=== PATIENT | male | born 1960 | race Caucasian/White ===

== ENCOUNTER 2019-10-01 18:20 | Emergency (ER) | payer OTHER, SELFPAY ==
--- NOTE | ~2019-10-01 | XR_ITS ---
EXAMINATION: XR chest 1V portable DATE: 10/01/2019 19:17 INDICATION: Upper intermittent chest pain. TECHNIQUE: A single frontal view of the chest was obtained. COMPARISON: Chest single view 03/10/2018, chest CT 04/06/2018 FINDINGS: The chest demonstrates clear lungs without pneumonia, pleural effusion, or pneumothorax. Th e heart size is normal. IMPRESSION: 1. No acute cardiopulmonary disease. Reviewed, dictated and finalized at location A.
[2019-10-01 18:35] VITALS: BP 155/97; PULSE 72; RESP 18; TEMP 36.6; O2SAT 99
[2019-10-01 18:42] VITALS: PULSE 70
--- NOTE | 2019-10-01 19:04 | ECG_ITS ---
Measurements Intervals [place] Rate: 68 P: 66 CO: 149 QRS: -11 QRSD: 103 T: 49 QT: 405 QTc: 431 Interpretive Statements SINUS RHYTHM POSSIBLE LEFT ATRIAL ENLARGEMENT DELAYED PRECORDIAL R/S TRANSITION BORDERLINE ST-T WAVE ABNORMALITY- LATERAL LEADS BASELINE WANDER- I, II, III BORDERLINE ECG Electronically Signed On 10-02-2019 7:20:06 CDT by Jerson Navarro D.O.
[2019-10-01 19:16] LABS: Basophils Absolute Auto 0.03 K/mm3 (0.00-0.10); Basophils Percent Auto 0.5 % (0.0-1.0); Eosinophils Absolute Auto 0.06 K/mm3 (0.02-0.50); Hematocrit 42.5 % (40.0-54.0); Hemoglobin 15.2 g/dL (14.0-18.0); Immature Granulocyte Absolute 0.01 K/mm3 (0.00-0.00); Immature Granulocyte Percent A 0.2 % (0.0-0.0); Lymphocytes Absolute Auto 1.91 K/mm3 (1.10-4.50); Lymphocytes Percent Auto 33.1 % (18.0-42.0); Mean Corpuscular HGB Conc 35.8 g/dL (32.0-36.0); Mean Corpuscular Hemoglobin 31.9 pg (27.0-31.0); Mean Corpuscular Volume 89.3 fL (78.0-102.0); Monocytes Absolute Auto 0.54 K/mm3 (0.10-0.90); Monocytes Percent Auto 9.4 % (2.0-11.0); Neutrophils Absolute Auto 3.2 K/mm3 (1.7-7.2); Neutrophils Percent Auto 55.8 % (50.0-70.0); Platelet Count Result 181 K/mm3 (150-420); Red Blood Count 4.76 M/mm3 (4.70-6.10); Red Cell Distribution Width 12.6 % (11.6-14.4); White Blood Count 5.8 K/mm3 (4.8-10.8)
[2019-10-01 19:20] VITALS: BP 127/80; PULSE 57; RESP 14; O2SAT 96
[2019-10-01 19:30] LABS: D Dimer 0.23 mg/L (0.19-0.50)
[2019-10-01 19:35] LABS: Alanine Aminotransferase 56 U/L (16-63); Albumin Level 4.1 g/dL (3.4-5.0); Alkaline Phosphatase 72 U/L (46-116); Anion Gap 14.8 mmol/L (7-16); Aspartate Amino Transferase 31 U/L (15-37); Bilirubin,Total 1.2 mg/dL (0.00-1.00); Blood Urea Nitrogen 14 mg/dL (7-18); Calcium 8.9 mg/dL (8.5-10.1); Carbon Dioxide 26 mmol/L (21-32); Chloride 104 mmol/L (98-108); Estimated CRCL calculation 75 ml/min; Estimated Glomerular Filt Rate > 60; Glucose 87 mg/dL (70-99); Osmolality Calculated 291 mOsm/kg (285-295); Potassium 3.8 mmol/L (3.5-5.1); Sodium 141 mmol/L (136-145); Total Protein 6.7 g/dL (6.4-8.2)
[2019-10-01 19:36] LABS: Troponin I < 0.02 ng/mL (0.00-0.056)
[2019-10-01 19:37] LABS: Magnesium 1.7 mg/dL (1.8-2.4)
--- NOTE | 2019-10-01 19:48 | ED.CHESTPAIN ---
HPI - Chest Pain General Chief Complaint: Chest Pain Stated Complaint: chest pain Source: patient Mode of arrival: ambulatory Limitations: no limitations History of Present Illness HPI narrative: 59 y.o. male PMH of Htn, hyperlipidemiacardiac, NH/stent placement 6 years ago presents with a 1.5 day hx of intermittent, mild chest discomfort, lasting 10 -45 minutes. Last episode onset at 5:15 this evening. Pain associated with vague lightheadedness. The back of his neck has also been sore over the past few days. sometimes when he is having chest pain. No sx of SOB, nausea, sweating. Pt states nothing brings it on or appears to relieve it. It seems to be associated with burping. Pt. followed by Dr. Jones; last seen 6 months ago. Denies burning in chest or acidic taste in his mouth. 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 Hx of g.i. bleed; does not take aspirin, takes Plavix. Pain lasting longer today. NH pain was mild, lasted several days, associated with D.O.E. and discomfort across his lower chest. Biked 18 miles this AM, broke out in a sweat, had no chest symptoms. 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 Feels under a lot of stress. Pertinent past history: known aortic aneurysm Risk Factors Thoracic aortic dissection risk factors: history of thoracic aortic aneurysm Pulmonary embolism risk factors: clotting disorder, history of deep vein thrombosis, immobilization and history of pulmonary embolism Related Data Home Medications Medication Instructions Recorded Confirmed atorvastatin 40 mg PO HS 10/01/19 10/01/19 clopidogrel 75 mg PO DAILY 10/01/19 10/01/19 ferrous sulfate 325 mg PO BID 10/01/19 10/01/19 lisinopril 2.5 mg PO DAILY 10/01/19 10/01/19 metoprolol tartrate 25 mg PO BID 10/01/19 10/01/19 pantoprazole 40 mg PO DAILY 10/01/19 10/01/19 Allergies Allergy/AdvReac Type Severity Reaction Status Date / Time No Known Allergies Allergy Unverified 10/05/12 13:36 Review of Systems Constitutional: Constitutional: Reports no additional constitutional complaints, Denies chills and Denies fever(s) ENT: Comments: Has had a minor sore throat and occasional sniffles for one - two days. Cardiovascular: Cardiovascular: Reports no additional cardiovascular complaints, Denies rapid heart rate and Denies slow heart rate Respiratory: Respiratory: Denies cough Gastrointestinal: Gastrointestinal: Denies abdominal pain, Denies diarrhea, Denies nausea and Denies vomiting Genitourinary: Genitourinary: Denies dysuria Musculoskeletal: Musculoskeletal: Reports no additional musculoskeletal complaints Integumentary/Breasts: Skin/Breast: Denies rash Neurologic: Reports system reviewed and no additional complaints, except as documented, Denies vertigo, Denies syncope and Denies headache(s) Psychiatric: Psychiatric: Denies depression Endocrine: Endocrine: Denies polyuria Hematologic/Lymphatic: Hematologic/Lymphatic: Denies easy bleeding PMFSH Past Medical History Medical History Hyperlipidemia Hypertension Surgical History Surgical History (Updated 10/01/19 @ 20:09 by Wesley Quezada MD) Stented coronary artery Family History Family History (Updated 10/01/19 @ 20:19 by Wesley Quezada MD) Mother Hx of CABG Father No problems noted. Exam Const: General: cooperative, healthy appearing and no acute distress Nutritional Appearance: average body habitus, well nourished and other (appears very fit) Orientation/consciousness: patient oriented x3 HENMT: Head: normal to inspection and atraumatic Face and sinus: sinuses nontender Teeth and gingiva: dentition normal Throat: posterior oropharynx normal Eyes: General: appearance normal, both eyes and all related structures Neck: Neck: normal visual inspection and no lymphadenopathy Chest: Chest palpation & inspect
--- NOTE | 2019-10-01 19:56 | PC.NURSE ---
Pt up to bathroom. 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 peres. Pt denies any complaints at this time.
[2019-10-01 20:49] VITALS: BP 128/82; PULSE 54; RESP 16; O2SAT 97
== END 2019-10-01 20:51 | disposition home or self-care (01) ==
PROVIDERS: Emergency Provider Family Medicine; PCP Internal Medicine
DX: R07.9 Chest pain, unspecified (principal)
CPT/HCPCS: 36415; 71045; 80053; 83735; 84484; 85025; 85380; 93005; 99284

== ENCOUNTER 2020-05-29 13:34 | Outpatient (CLI) | payer OTHER, SELFPAY ==
--- NOTE | ~2020-05-29 | CT_ITS ---
EXAMINATION: CT abdomen pelvis w con EXAM DATE: 05/29/2020 14:56 INDICATION: Acute abdominal pain; nausea. TECHNIQUE: Spiral CT of the abdomen and pelvis was performed following intravenous injection of 100 m L Omnipaque 350. Axial, coronal and sagittal images were reviewed. The dose-length product (DLP) fo r this examination was 621.94 mGy-cm. The exposure was tailored according to patient size (auto mA e xposure control), and iterative reconstruction (ASIR) was used as additional dose reduction technique . There is no prior study for comparison. 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 Adjacent to this there is a loop of small bowel with moderate wa ll edema, fecal stasis, and partial obstruction suspected, only with a couple of mildly dilated small bowel loops proximal to this. Colonic fluid, correlate for diarrhea. The liver, spleen, adrenal glands and pancreas are unremarkable. Gallbladder is unremarkable. No bi liary obstruction. Portal and splenic veins are patent. Kidneys enhance symmetrically. There is no hydronephrosis. The prostate is unremarkable. The bladder is unremarkable. There is no retroperi toneal or pelvic lymphadenopathy. There is mild scattered arteriosclerotic disease. The appendix is normal. Small umbilical fat-containing hernia. No free intraperitoneal gas. The hea rt is normal in size. There are no pericardial or pleural effusions. The lung bases are unremarkabl e. There are no osteoblastic or osteolytic lesions identified. IMPRESSION: 1. 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 2. Small umbilical fat-containing hernia. Reviewed, dictated and finalized at location A. LE SOLUTIONS ARCHITECT IMPRESSION: 1. 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 2. Small umbilical fat-containing hernia.
[2020-05-29 13:52] LABS: Basophils Absolute Auto 0.02 K/mm3 (0.00-0.10); Basophils Percent Auto 0.2 % (0.0-1.0); Eosinophils Absolute Auto 0.02 K/mm3 (0.02-0.50); Eosinophils Percent Auto 0.2 % (1.0-6.0); Hematocrit 47.7 % (40.0-54.0); Hemoglobin 16.6 g/dL (14.0-18.0); Immature Granulocyte Absolute 0.03 K/mm3 (0.00-0.00); Immature Granulocyte Percent A 0.3 % (0.0-0.0); Lymphocytes Absolute Auto 1.16 K/mm3 (1.10-4.50); Lymphocytes Percent Auto 11.2 % (18.0-42.0); Mean Corpuscular HGB Conc 34.8 g/dL (32.0-36.0); Mean Corpuscular Hemoglobin 31.3 pg (27.0-31.0); Mean Corpuscular Volume 89.8 fL (78.0-102.0); Monocytes Absolute Auto 0.75 K/mm3 (0.10-0.90); Monocytes Percent Auto 7.2 % (2.0-11.0); Neutrophils Absolute Auto 8.4 K/mm3 (1.7-7.2); Neutrophils Percent Auto 80.9 % (50.0-70.0); Platelet Count Result 206 K/mm3 (150-420); Red Blood Count 5.31 M/mm3 (4.70-6.10); Red Cell Distribution Width 12.4 % (11.6-14.4); White Blood Count 10.4 K/mm3 (4.8-10.8)
[2020-05-29 14:01] LABS: Appearance Urine Clear (Clear); Bilirubin Urine Negative (Negative); Color Urine Yellow (Yellow); Glucose Urine UA Negative (Negative); Ketones Urine Negative (Negative); Leukocyte Esterase Ur Negative (Negative); Nitrate Urine Negative (Negative); Protein Urine Negative (Negative); Specific Grav Ur >= 1.030 (1.010-1.020); Urobilinogen Urine 0.2 mg/dL (0.2-1.0)
[2020-05-29 14:03] LABS: Add Urine Microscopic? YES; Bacteria Urine Trace /hpf; Blood Urine Trace-Intact (Negative); Mucus Urine Moderate /lpf; RBC Urine 0-2 /hpf (0-2); WBC Urine 0-3 /hpf (0-3)
[2020-05-29 14:06] LABS: Alanine Aminotransferase 47 U/L (16-63); Alkaline Phosphatase 88 U/L (46-116); Amylase 47 U/L (25-115); Anion Gap 6 mmol/L (8-16); Aspartate Amino Transferase 21 U/L (15-37); Bilirubin,Total 1.5 mg/dL (0.00-1.00); Blood Urea Nitrogen 14 mg/dL (7-18); Carbon Dioxide 30 mmol/L (21-32); Chloride 102 mmol/L (98-108); Estimated Glomerular Filt Rate > 60; Glucose 124 mg/dL (70-99); Lipase 138 U/L (73-393); Osmolality Calculated 287 mOsm/kg (285-295); Potassium 4.3 mmol/L (3.5-5.1); Sodium 138 mmol/L (136-145)
[2020-05-29 14:51] LABS: Erythrocyte Sedimentation Rate 9 mm/hr (0-20)
== END 2020-05-29 13:35 | disposition home or self-care (01) ==
LOC: CHSLAB 13:38
PROVIDERS: PCP Internal Medicine; Visit Provider Internal Medicine
DX: R10.9 Unspecified abdominal pain (principal); K92.1 Melena; R11.0 Nausea
CPT/HCPCS: 36415; 74177; 80053; 81001; 82150; 83690; 85025; 85652; Q9965

== ENCOUNTER 2023-02-20 16:04 | Outpatient (CLI) | payer OTHER, SELFPAY ==
--- NOTE | ~2023-02-20 | XR_ITS ---
EXAM: XR heel RT min 2V DATE: 02/20/2023 16:32 HISTORY: R Heel Pain x3 weeks (No trauma) . COMPARISON: None available. FINDINGS: Normal mineralization. No fracture or dislocation. No lytic or blastic lesion. Joint space s are maintained. Mild plantar enthesopathy No erosion or periosteal change. Soft tissues within norm al limits. IMPRESSION: Plantar enthesopathy, otherwise normal right heel radiograph findings. Reviewed, dictated and finalized at location K. IMPRESSION: Plantar enthesopathy, otherwise normal right heel radiograph geovany perry
== END 2023-02-20 16:05 | disposition home or self-care (01) ==
LOC: CHSIMG 16:06
PROVIDERS: PCP Internal Medicine; Visit Provider Internal Medicine
DX: M79.671 Pain in right foot (principal); M71.571 Other bursitis, not elsewhere classified, right ankle and foot
CPT/HCPCS: 73650

== ENCOUNTER 2023-03-10 07:19 | Outpatient (CLI) | payer OTHER, SELFPAY ==
--- NOTE | ~2023-03-10 | CT_ITS ---
EXAMINATION: CT foot RT wo con DATE: 03/10/2023 07:37 INDICATION: Right heel pain TECHNIQUE: High resolution computed tomography (CT) of the right foot and ankle was performed without intravenous contrast. Additional sagittal and coronal reconstructions were performed. Automated expo sure control and iterative reconstruction technique were employed. The dose-length product was 467.22 mGy-cm. COMPARISON: Right heel radiographs dated 02/20/2023 FINDINGS: Bone alignment is normal. No fracture. Mild osteoarthritis at the first metatarsophalangeal, the seco nd-fourth tarsal metatarsal and a few interphalangeal joints. Small plantar calcaneal spur. No erosio ns to suggest inflammatory arthritis. Soft tissues are unremarkable. No ankle joint effusion. IMPRESSION: 1. 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 Reviewed, dictated and finalized at location A. IMPRESSION: 1. Small plantar calcaneal spur and mild polyarticular osteoarthritis in the ri ght mid and forefoot.
== END 2023-03-10 07:20 | disposition home or self-care (01) ==
LOC: CHSIMG 07:20
PROVIDERS: PCP Internal Medicine; Visit Provider Internal Medicine
DX: M79.671 Pain in right foot (principal); M77.31 Calcaneal spur, right foot; M19.071 Primary osteoarthritis, right ankle and foot
CPT/HCPCS: 73700

== ENCOUNTER 2024-03-15 12:53 | Emergency (ER) | payer OTHER, SELFPAY ==
[2024-03-15 13:17] VITALS: BP 163/96; PULSE 84; RESP 16; TEMP 36.5; O2SAT 97
--- NOTE | 2024-03-15 13:47 | ED.GENADULT ---
HPI - General Adult General Chief complaint: Wound/Laceration Stated complaint: Infected Finger Right Hand Time Seen by Provider: 03/15/24 13:48 Source: patient, RN notes reviewed and old records reviewed Mode of arrival: ambulatory Limitations: no limitations History of Present Illness HPI narrative: 63-year-old male presents to the [facility] with an infected finger middle finger right hand. Patient does bite his nails Related Data Home Medications Medication Instructions Recorded Confirmed atorvastatin 40 mg tablet 40 mg PO HS 10/01/19 03/15/24 clopidogrel 75 mg tablet 75 mg PO DAILY 10/01/19 03/15/24 metoprolol tartrate 25 mg tablet 25 mg PO BID 10/01/19 03/15/24 pantoprazole 40 mg tablet,delayed 40 mg PO DAILY 10/01/19 03/15/24 release Allergies Allergy/AdvReac Type Severity Reaction Status Date / Time No Known Allergies Allergy Unverified 03/15/24 13:17 Review of Systems Review of Systems: All systems reviewed & are unremarkable except as noted in HPI and below Constitutional: Constitutional: Reports no additional constitutional complaints Eyes: Eyes: Reports no additional eye complaints ENT: Reports system reviewed and no additional complaints, except as documented Cardiovascular: Cardiovascular: Reports no additional cardiovascular complaints, Denies chest pain and Denies dyspnea Respiratory: Respiratory: Reports no additional respiratory complaints, Denies chest congestion, Denies cough and Denies dyspnea Gastrointestinal: Gastrointestinal: Reports no additional gastrointestinal complaints, Denies abdominal pain, Denies nausea and Denies vomiting Musculoskeletal: Musculoskeletal: Reports no additional musculoskeletal complaints Integumentary/Breasts: Skin/Breast: Reports as per HPI Neurologic: Reports system reviewed and no additional complaints, except as documented Psychiatric: Psychiatric: Reports no additional psychiatric complaints Allergic/Immunologic: Allergic/Immunologic: Reports no additional allergic/immunologic complaints [facility] Past Medical History Medical History Hyperlipidemia Hypertension Surgical History Surgical History Stented coronary artery Family History Family History Mother Hx of CABG Father No problems noted. Comments At the time of my signature, I reviewed and agree with the nursing past medical, surgical, social, and family history. There is no relevant family history pertinent to the patient complaint. Exam Const: General: cooperative, healthy appearing, comfortable, no acute distress, well developed, alert and well nourished Nutritional Appearance: well nourished Orientation/consciousness: patient oriented x3 Limitations: no limitations HENMT: Head: normal to inspection Ears: hearing grossly normal bilaterally and external ears normal Face/Nose/Sinus: Normal external nose present, Normal nares present, Normal nasal mucous membranes and turbinates present, normal facial exam and face symmetric Face and sinus: normal facial exam and face symmetric Eyes: General: appearance normal, both eyes and all related structures Alignment and Position: alignment normal Periorbital: periorbital findings normal Neck: Neck: normal visual inspection, full ROM, no lymphadenopathy and no meningeal signs Chest: Chest palpation & inspection: normal inspection of the chest Resp: Effort & Inspection: normal respiratory effort and able to speak in complete sentences Cardio: Rate: regular rate Skin: General skin exam: normal color and no rashes or lesions noted Lesions: no lesions Rashes: no rashes Trauma: no lacerations or abrasions Other: Middle finger right hand, paronychia around the nail Neuro: General: patient oriented x3, gait normal, tone normal, moves all extremities and no mening
[2024-03-15] MEDS: LIDOCAINE HCL 1% LOCAL INJ 2 ML AMPUL 4 ML INFILTRATE (13:57)
== END 2024-03-15 14:21 | disposition home or self-care (01) ==
PROVIDERS: Emergency Provider Nurse Practitioner; PCP Internal Medicine
DX: L03.011 Cellulitis of right finger (principal); E78.5 Hyperlipidemia, unspecified; Z95.5 Presence of coronary angioplasty implant and graft
CPT/HCPCS: 10060; 87070; 87075; 87077; 87185; 87205; 99213; G0463

== ENCOUNTER 2024-10-30 07:49 | Outpatient (CLI) | payer OTHER, SELFPAY ==
--- NOTE | ~2024-10-30 | US_ITS ---
EXAMINATION: US carotid duplex BI DATE: 10/30/2024 08:11 INDICATION: Bilateral carotid bruit TECHNIQUE: Grayscale, color Doppler, and pulsed Doppler images of the cervical carotid arteries were obtained. The degree of vessel stenosis is placed in one of the following categories: normal, <50%, 5 0-69%, >=70% but less than near-occlusion, near-occlusion, or total occlusion. Note that percent sten osis relative to normal distal artery lumen diameter is indirectly measured from velocity measurement s as described by Mick, et al. Radiology 2003; 229:340-346. COMPARISON: None. FINDINGS: RIGHT: The right common carotid artery (CCA) peak systolic velocity (PSV) is 124 cm/s. The right internal ca rotid artery (ICA) PSV is 77 cm/s. The right ICA end-diastolic velocity (EDV) is 35 cm/s. The right I CA/CCA PSV ratio is 0.6. Grayscale and color Doppler images yield an estimate of <50% diameter reduct ion from plaque in the ICA. The external carotid artery (ECA) PSV is 104 cm/s. There is antegrade sultana w in the right vertebral artery. LEFT: The left CCA PSV is 100 cm/s. The left ICA PSV is 96 cm/s. The left ICA EDV is 40 cm/s. The left ICA/ CCA PSV ratio is 1.0. Grayscale and color Doppler images yield an estimate of <50% diameter reduction from plaque in the ICA. The ECA PSV is 108 cm/s. There is antegrade flow in the left vertebral arter y. IMPRESSION: 1. <50% stenosis in the right internal carotid artery. 2. <50% stenosis in the left internal carotid artery. Reviewed, dictated and finalized at location A.
--- OUTSIDE RECORDS SUMMARY | 2024-10-30 07:54 | XMS_ITS | Referral Summary ---
Author Organization [facility] [address] Address [address] [place] [address] Care Team Providers Care Wellness Ambassador Name Role Phone Jennifer Witt MD Primary Care Provider [phone] Carlton Lynn MD Unavailable [phone] Enrique Bateman MD Unavailable [phone] Allergies No known active allergies Medications lisinopriL (PRINIVIL,ZESTRI L) 2.5 mg tablet 02/20/2023 Ac tive atorvastatin (LIPITOR) 40 mg tablet Take 1 tablet (40 mg total) by mouth daily 90 tablet 3 01/25/2024 Active clopidogreL (PLAVIX) 75 mg tablet Take 1 tablet (75 mg total) by mouth daily 90 tablet 3 01/25/2024 Active metoprolol tartrate (LOPRESSOR) 25 mg immediate release tablet TAKE 1 TABLET TWICE A DAY. 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 Overview (06/01/2020): Added automatically from request for surgery [id number] Chest pain 12/12/2019 Paroxysmal SVT (supraventricular tachycardia) Coronary artery disease of n ative artery of [place] heart with stable angina pectoris 01/26/2017 Hyperlipidemia LDL goal <70 01/26/2017 History of GI bleed 01/26/2017 Resolved Problems Problem Noted Date Diagnosed Date Resolved Date Partial small bowel obstruction 05/29/2020 07/17/2020 Immunizations Immunization Administration Dates Next Due Influenza, Unspecified 05/08/2020 Social History Tobacco Use Types Packs/Day Years Used Date Smoking Tobacco: Never Cigarettes Smokeless Tobacco: Never Tobacco Cessation:Counseling Given: Not Answered Alcohol Use Standard Drinks/Week Comments Yes 0 (1 standard drink = 0.6 oz pur e alcohol) Sex and Gender Information Value Date Recorded Sex Assigned at Not on file 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 Gender Identity Male 12/05/2019 7:51 AM CDT Sexual Orientation Not on file Last Filed Vital Signs Vital Sign Reading Time Taken Comments Blood Pressure 110/66 03/14/2024 1:08 PM CDT Pulse 59 03/14/2024 1:08 PM CDT Temperature 36.2 C (97.2 F) 11/07/2023 12:57 PM CDT Respiratory Rate 18 11/07/2023 12:57 PM CDT Oxygen Saturation 98% 03/14/2024 1:08 PM CDT Inhaled Oxygen Concentration - - Weight 95.7 kg (211 lb) 03/14/2024 1:08 PM CDT Height 185.4 cm (6' 1 ) 03/14/2024 1:08 PM CDT Body Mass Index 27.84 03/14/2024 1:08 PM CDT Plan of Treatment Not on file Procedures Procedure Name Priority Date/Time Associated Diagnosis Comments COLONOSCOPY REPORT 11/28/2012 from Last 3 Months or Most Recently Relevant to Health Maintenance Results * COLONOSCOPY REPORT (11/28/2012) Anatomical Region Laterality Modality Other Narrative 11/28/2012 Ordered by an unspecified provider. us Historical Provider GI PROCEDURE ORDERABLES F inal Result from Last 3 Months or Most Recently Relevant to Health Maintenance Insurance [facility] Advance Directives For more information, please contact: [phone] * Full Code (Latest Code Status on File) Date Activated Date Inactivated Comments 05/29/2020 11:24 PM 06/09/2020 2:52 PM Care Teams Wellness Ambassador Relationship Specialty Start Date End Date Jennifer Witt MD [address] [place], [place] [id number] PCP - General 12/25/12 Carlton Lynn MD [address] [facility] [address] [place] [address] Consulting Physician Surgical Critical Care 06/09/20 Enrique Bateman MD [address] [facility] [address] [place] [address] Medical Oncologist/Hematologis t Hematology and Oncology 07/08/20
--- OUTSIDE RECORDS SUMMARY | 2024-10-30 07:54 | XMS_ITS | Clinical Summary ---
Author Organization [facility] [place] [address] Address [address] [place] [address] Care Team Providers Care Load Tallier Name Role Phone Jennifer Witt MD Primary Care Provider + [phone] Carlton Lynn MD Unavailable [phone] Enrique Bateman MD Unavailable [phone] Allergies No known active allergies Medications lisinopriL [...] (06/01/2020): Added automatically from request for surgery [id number] Chest pain 12/12/2019 Paroxysmal SVT (supraventricular tachycardia) Coronary artery disease of n ative artery of [place] heart with stable angina pectoris 01/26/2017 Hyperlipidemia LDL goal <70 01/26/2017 History of GI bleed 01/26/2017 Resolved Problems Problem Noted Date Diagnosed Date Resolved Date Partial small bowel obstruction 05/29/2020 07/17/2020 Immunizations Immunization Administration Dates Next Due Influenza, Unspecified 05/08/2020 Surgical History Surgery Date Site/Laterality Comments CARDIAC CATHETERIZATION 07/10/2012 - 07/09/2013 CARDIAC STENT PLACEMENT 07/10/2012 - 07/09/2013 Placement of 3 stents UPPER GASTROINTESTINAL ENDOSCOPY COLONOSCOPY COLON SURGERY 05/10/2020 - 06/08/2020 Medical History Medical History Date Comments Umbilical hernia Coronary artery disease Upper GI bleed Secondary to pep tic ulcer Myocardial infarction (HCC) 2012 PSVT (paroxysmal supraventri cular tachycardia) Hyperlipidemia Hypertension Anemia Cancer (HCC) May 2020 Heart disease September 2012 Family History Medical History Relation Name Comments Coronary artery disease Father Jameel Lang Cor onary Artery Disease; Diabetes Father Jameel Lang Heart disease Father Jameel Lang Kidney disease Father Jameel Lang Coronary artery disease Mother Shaina Giles nary Artery Disease; Heart attack Mother Shaina Lang Relation Name Status Comments Father Jameel Lang Alive Mother Shaina Lang Alive Social History Tobacco Use Types Packs/Day Years Used Date Smoking Tobacco: Never Cigarettes Smokeless Tobacco: Never Tobacco Cessation:Counseling Given: Not Answered Alcohol Use Standard Drinks/Week Comments Yes 0 (1 standard drink = 0.6 oz pur e alcohol) Sex and Gender Information Value Date Recorded Sex Assigned at Not on file 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 Gender Identity Male 12/05/2019 7:51 AM CDT Sexual Orientation Not on file Obstetrics History Last Filed Vital Signs Vital Sign Reading [...] 03/14/2024 1:08 PM CDT Plan of Treatment Health Maintenance Due Date Last Done Comments Depression Screening 1961 Hepatitis C Screening 1961 Prostate Cancer Screening-PSA 1961 Hepatitis B Screening 1979 Regular Well Visit/Exam 18-64 1979 Pneumococcal vaccine <65 (2 of 2 - PPSV23) 08/11/2020 06/16/2020 Colon Cancer Screening-Colonoscopy 11/28/20222012 Covid-19 Vaccine (4 - 2023-2 5 season) 2024 06/02/2021, 08/21/2020, 07/22/2020 Influenza Vaccine (Season Ended) 2025 05/08/20 20 DTaP/Tdap/Td Vaccine (2 - Td or Tdap) 05/19/2028 05/19/2018 Colon Cancer Screening-CT Colonography Discontinued 11/28/2012 Colon Cancer Screening-DNA Stool Discontinued 11/29/19 13 Colon Cancer Screening-FIT Discontinued 11/28/2012 Colon Cancer Screening-Sigmoidoscopy Discontinued 11/08 Zoster Vaccine Completed 10/02/2020, 06/16/2020 Procedures Procedure Name Priority Date/Time Associated Diagnosis Comments COLONOSCOPY REPORT 11/28/2012 from Last 3 Months or Most Recently Relevant to Health Maintenance Results * COLONOSCOPY REPORT (11/28/2012) Anatomical Region Laterality Modality Other Narrative 11/28/2012 Ordered by an unspecified provider. us Historical Provider GI PROCEDURE ORDERABLES F inal Result from Last 3 Months or Most Recently Relevant to Health Maintenance Insurance [facility] HMO [facility] HMO [employer] HMO Advance Directives For more information, please contact: [phone] * Full Code (Latest Code Status on File) Date Activated Date Inactivated Comments 05/29/2020 11:24 PM 06/09/2020 2:52 PM Care Teams Load Tallier Relationship Specialty Start Date End Date Jennifer Witt MD [address] [place] [address] PCP - General 12/25/12 Carlton Lynn MD [address] [address] Consulting Physician Surgical Critical Care 06/09/20 Enrique Bateman MD [address] [address] Medical Oncologist/Hematologis t Hematology and Oncology 07/08/20
--- OUTSIDE RECORDS SUMMARY | 2024-10-30 07:54 | XMS_ITS | Clinical Summary ---
Author Organization [facility] Address [address] [place] [address] Phone Care Team Providers Care Film Historian Name Role Phone Ho Jones MD Unavailable Jennifer Witt MD Primary Care Provider [phone] Allergies No known active allergies Medications lisinopril (PRINIVIL, ZESTRIL) 2.5 MG Tablet Take 2.5 mg by mouth daily. Active clopidogrel (PLAVIX) 75 MG Tablet Take 75 mg by mouth daily. Active atorvastatin (LIPITOR) 40 MG Tablet Take 40 mg by mouth daily. Active pantoprazole (PROTONIX) 40 MG Tablet Delayed Response Take 40 mg by mouth daily. Active metoprolol tartrate (LOPRESSOR) 25 MG Tablet Take 25 mg by mouth 2 times daily. Active Ferrous Sulfate (IRON) 325 (65 Fe) MG Tablet Take by mouth. 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 FILTER WASHER AND PRESSER Pulse 100 08/31/2021 10:40 AM FILTER WASHER AND PRESSER Temperature - - Respiratory Rate - - Oxygen Saturation - - Inhaled Oxygen Concentration - - Weight 80.7 kg (178 lb) 08/31/2021 10:14 AM FILTER WASHER AND PRESSER Height 182.9 cm (6') 08/31/2021 10:14 AM FILTER WASHER AND PRESSER Body Mass Index 24.14 08/31/2021 10:14 AM FILTER WASHER AND PRESSER Plan of Treatment Health Maintenance Due Date Last Done Comments Hepatitis C Virus (HCV) Screening 1961 Colonoscopy 2006 Colorectal Cancer Screening 2006 Cologuard 2011 Immunochemical Fecal Occult Blood 2011 Pneumococcal Immunization (5 0+ years) (2 of 2 - PPSV23) 06/16/2021 06/16/2020 Influenza Immunization (#1) 2024 05/08/2020 SARS-COV-2 Immunization ( season) 2024 06/02/2021, 08/21/2020, 07/22/2020 Respiratory Syncytial Virus (RSV) Immunization (Adult) (1 - 1-dose 75+ series) 2036 DTaP/Tdap/Td Immunization Discontinued 05/19/2018 TdaP Immunization Completed 05/19/2018 Pneumococcal Immunization Combined Discontinued 06/16/2020 Zoster Immunization Completed 10/02/2020, 06/16/2020 Hepatitis B Immunization Aged Out No longer eligible based on patient's age to complete this topic Meningococcal Immunization (ACWY) Aged Out No longer eligible based on patient's age to complete this topic Rotavirus Immunization Aged Out No lo nger eligible based on patient's age to complete this topic Insurance [facility] [facility] Care Teams Film Historian Relationship Specialty Start Date End Date Jennifer Witt MD [address] [place] [address] PCP - General Internal Medicine 05/28/18 Ho Jones MD [address] [address] Software Configuration Manager Cardiovascular Disease - Cardiology 05/28/18
--- OUTSIDE RECORDS SUMMARY | 2024-10-30 07:54 | XMS_ITS | Encounter Summary ---
Author Organization [facility] Healthcare Address [address] [place] [address] Care Team Providers Care Systems Software Developer Name Role Phone Jennifer Witt MD Primary Care Provider [phone] Carlton Lynn MD Unavailable [phone] Enrique Bateman MD Unavailable [phone] Encounter Details Date Type Department Care Team (Late st Contact Info) Description 10/29/2020 Telephone [facility] - [facility] [address] [place] [address] Transcribed Order, Provider Social History Tobacco Use Types Packs/Day Years Used Date Smoking Tobacco: Never Smokeless Tobacco: Never Alcohol Use Standard Drinks/Week Comments Yes 0 (1 standard drink = 0.6 oz pur e alcohol) Sex and Gender Information Value Date Recorded Sex Assigned at Not on file 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 Gender Identity Male 12/05/2019 7:51 AM CDT Sexual Orientation Not on file documented as of this encounter Plan of Treatment Not on file documented as of this encounter Visit Diagnoses Not on filedocumented in this encounter Care Teams Systems Software Developer Relationship Specialty Start Date End Date Jennifer Witt MD [address] [place] [address] PCP - General 12/25/12 Carlton Lynn MD [address] [place] [address] Consulting Physician Surgical Critical Care 06/09/20 Enrique Bateman MD [address] [place] [address] Medical Oncologist/Hematologis t Hematology and Oncology 07/08/20 documented as of this encounter
== END 2024-10-30 07:50 | disposition home or self-care (01) ==
PROVIDERS: PCP Internal Medicine; Visit Provider Internal Medicine
DX: R09.89 Other specified symptoms and signs involving the circulatory and respiratory systems (principal); I65.23 Occlusion and stenosis of bilateral carotid arteries
CPT/HCPCS: 93880